=== PATIENT | female | born 1995 | race Caucasian/White ===

== ENCOUNTER 2024-05-17 08:39 | Outpatient (RCR) | payer OTHER, SELFPAY ==
[2024-05-17] VITALS (7 sets, daily range): BP systolic 109–133; BP diastolic 65–87
[2024-05-17] MEDS: TYLENOL 650 MG PO (09:15)
[2024-05-17] MEDS: BENADRYL 50 MG PO (09:16)
[2024-05-17] MEDS: PEPCID 52 MG IV (09:16)
[2024-05-17] MEDS: SOLU-MEDROL PF 0.800000000000000044 MG IV (09:47)
[2024-05-17] MEDS: OCREVUS 520 MG IV (10:18)
== END 2024-05-20 10:56 | disposition home or self-care (01) ==
LOC: OID 08:39
PROVIDERS: ATTENDING PHYSICIAN Psychiatry & Neurology Neurology; FAMILY PHYSICIAN Family Medicine
DX: G35 Multiple sclerosis (principal)
CPT/HCPCS: 96367; 96413; 96415; J2350

== ENCOUNTER → 2024-11-12 10:22 | Outpatient (REF) | payer OTHER, SELFPAY | LOC: RAD 10:22 | PROVIDERS: ATTENDING PHYSICIAN Obstetrics & Gynecology; FAMILY PHYSICIAN Nurse Practitioner Family | DX: R10.2 Pelvic and perineal pain (principal) | CPT/HCPCS: 76830; 76856 ==

== ENCOUNTER 2024-12-09 08:39 | Outpatient (RCR) | payer OTHER, SELFPAY ==
[2024-12-09] VITALS (7 sets, daily range): BP systolic 109–127; BP diastolic 60–81
[2024-12-09] MEDS: NSS 500 IV (09:14)
[2024-12-09] MEDS: BENADRYL 50 MG PO (09:16)
[2024-12-09] MEDS: PEPCID 52 MG IV (09:16)
[2024-12-09] MEDS: TYLENOL 650 MG PO (09:16)
[2024-12-09] MEDS: SOLU-MEDROL PF 0.8 MG IV (09:16)
[2024-12-09] MEDS: OCREVUS 520 MG IV (09:44)
== END 2024-12-10 10:27 | disposition home or self-care (01) ==
LOC: OID 08:39
PROVIDERS: ATTENDING PHYSICIAN Psychiatry & Neurology Neurology; FAMILY PHYSICIAN Family Medicine
DX: G35 Multiple sclerosis (principal); Z59.86 Financial insecurity
CPT/HCPCS: 96367; 96375; 96413; 96415; J2350

== ENCOUNTER 2025-06-25 08:46 | Outpatient (RCR) | payer BC, SELFPAY ==
[2025-06-25] VITALS (10 sets, daily range): BP systolic 94–119; BP diastolic 65–88
[2025-06-25] MEDS: NSS 500 IV (09:16)
[2025-06-25] MEDS: TYLENOL 650 MG PO (09:18)
[2025-06-25] MEDS: BENADRYL 50 MG PO (09:19)
[2025-06-25] MEDS: PEPCID 52 MG IV (09:20)
[2025-06-25] MEDS: SOLU-MEDROL PF 50.8 MG IV (09:52)
[2025-06-25] MEDS: OCREVUS 520 MG IV (10:20)
== END 2025-06-26 23:59 | disposition home or self-care (01) ==
LOC: OID 08:46
PROVIDERS: ATTENDING PHYSICIAN Psychiatry & Neurology Neurology; FAMILY PHYSICIAN Nurse Practitioner Family
DX: G35 Multiple sclerosis (principal)
CPT/HCPCS: 96361; 96367; 96413; 96415; J2350

== ENCOUNTER → 2025-08-25 08:47 | Outpatient (REF) | payer BC, SELFPAY | LOC: RAD 08:47 | PROVIDERS: ATTENDING PHYSICIAN Nurse Practitioner Family | DX: M54.50 Low back pain, unspecified (principal) | CPT/HCPCS: 72110 ==

== ENCOUNTER → 2025-09-03 16:24 | Outpatient (REF) | payer BC, SELFPAY | LOC: PAVMRI 16:24 | PROVIDERS: ATTENDING PHYSICIAN Nurse Practitioner Family; OTHER PHYSICIAN Psychiatry & Neurology Neurology | DX: M54.6 Pain in thoracic spine (principal); M54.50 Low back pain, unspecified | CPT/HCPCS: 72146; 72148 ==